=== PATIENT | male | born 1985 | race Caucasian/White ===

== ENCOUNTER → 2017-09-09 | Outpatient (CLI) | payer BC ==
--- NOTE | 2017-09-11 10:48 | US ---
HISTORY: Thyroid dysfunction Study: Ultrasound of thyroid Comparison: None Technique: Multiple sonographic images of the thyroid were obtained. Findings: The right lobe of the thyroid measures 4.5 x 1.6 x 1.1 cm. The left lobe of the thyroid measures 4.1 x 1.8 x 1.5 cm. The isthmus measures 0.3 cm. No definite focal discrete nodules are appreciated at th is time. IMPRESSION: Unremarkable thyroid ultrasound. Reported By:
== END ==
LOC: RAD 11:02
PROVIDERS: ATTEND Nurse Practitioner Family
DX: E07.89 Other specified disorders of thyroid (principal)
CPT/HCPCS: 76536